=== PATIENT | female | born 1930 | race Caucasian/White ===

== ENCOUNTER 2019-10-26 19:05 | Emergency (ER) | payer OTHER, MEDICAID ==
[~2019-10-26] VITALS: Ht 149.9 cm; Wt 58.1 kg
[2019-10-26 19:24] VITALS: BP_SYST 147
--- NOTE | 2019-10-26 19:45 | NUR ---
Patient to ER bed 5 to gown for evaluation. Side rails up.
--- NOTE | 2019-10-26 20:00 | NUR ---
ER at bedside examining patient.
--- NOTE | 2019-10-26 20:15 | NUR ---
Pt BIB family to ED C/O gradual onset headache status post fall today. Pain is mild, nonradiating. No alleviating or exacerbating factors. Per daughter, patient had a mechanical fall and striked her head No other injuries and or complaints noted VSS no s/s of acute distress Resting on gurney rails up
[2019-10-26 21:00] VITALS: BP_SYST 147
--- NOTE | 2019-10-26 21:00 | NUR ---
Patient given written and verbal discharge instructions and verbalizes understanding. ER MD discussed with patient the results and treatment provided. Patient in stable condition. ID arm band removed. Patient educated on pain management and to follow up with PMD. Pain Scale 0/10 Opportunity for questions provided and answered.
--- NOTE | 2019-10-26 21:00 | NUR ---
Note undone in EDM - 10/26/19 at 2157 by LENNIE Pt BIB family to ED C/O gradual onset headache status post fall today. Pain is mild, nonradiating. No alleviating or exacerbating factors. Per daughter, patient had a mechanical fall and striked her head VSS no s/s of acute distress Resting on [employer] up
== END 2019-10-26 21:00 | disposition home or self-care (01) ==
LOC: SED 19:05
DX: S09.8XXA Other specified injuries of head, initial encounter (principal); E11.9 Type 2 diabetes mellitus without complications; G30.9 Alzheimer's disease, unspecified; F02.80 Dementia in other diseases classified elsewhere, unspecified severity, without behavioral disturbance, psychotic disturbance, mood disturbance, and anxiety; G20 Parkinson's disease; Z88.0 Allergy status to penicillin; W18.39XA Other fall on same level, initial encounter; Y93.89 Activity, other specified; Y92.89 Other specified places as the place of occurrence of the external cause; Y99.8 Other external cause status
CPT/HCPCS: 70450-TC; 82962; 99284